=== PATIENT | female | born 1950 | race Caucasian/White ===

== ENCOUNTER 2017-03-03 08:32 | Outpatient (CLI) | payer MEDICARE ==
[2015-06-05 07:53] VITALS: BMI 22.6
[~2017-03-03 08:32] MED LIST: CRESTOR10 MG PO; CYMBALTA60 MG PO; DESERYL100 MG PO; ECOTRIN325 MG PO; LISINOPRIL5 MG PO; OXYBUTYNIN CHLOR5 MG PO; PLAVIX75 MG PO; PRILOSEC20 MG PO; SYNTHROID25 MCG PO
== END 2017-03-03 23:59 | disposition home or self-care (01) ==
LOC: D.MAMMO 08:32
DX: Z12.31 Encounter for screening mammogram for malignant neoplasm of breast (principal)

== ENCOUNTER 2018-01-11 15:15 | Inpatient (IN) | payer MEDICARE ==
[~2018-01-11] VITALS: Ht 165.1 cm; Wt 61.8 kg
--- NOTE | ~2018-01-11 | CN ---
PATIENT NAME:MARIA DEL CARMEN EASTON MEDICAL RECORD: [id number] : 48 LOCATION:D.[id number] ADMIT DATE: 01/11/18 ACCOUNT: [id number] CONSULTING PHYSICIAN: JUSTYN MUÑOZ MD REFERRING PHYSICIAN: XI MONZON MD DATE OF CONSULTATION: 01/12/2018 CONSULT REQUESTING PHYSICIAN: Dr. Tahira Monzon. REASON FOR CONSULTATION: Pneumonia, acute hypoxic respiratory failure. HISTORY OF PRESENT ILLNESS: Ms. Easton is a 67-year-old female. According to the patient, she was not feeling well for the last few days. Yesterday, she was seen in Dr. Mantilla's office for lower back evaluation scheduling her for surgery, but her pulse ox was 84% on room air, sent to the urgent care and chest x-ray showed she has left lower lobe pneumonia. The patient was admitted to the hospital. Today, she is feeling a lot better. She is breathing better. Denies any chest pain, no pleurisy, cough without much sputum production. REVIEW OF SYSTEMS: Mainly in the history of present illness. PAST MEDICAL HISTORY: 1. Chronic backache. 2. Hypertension. 3. Coronary artery disease. 4. Hypothyroidism. 5. Depressive disorder. 6. Cervical spine degeneration. PERSONAL AND SOCIAL HISTORY: The patient is a nonsmoker, nondrinker. FAMILY HISTORY: Noncontributory. SURGICAL HISTORY: 1. She has a thyroidectomy. 2. Total hysterectomy. 3. Cataract surgery. PHYSICAL EXAMINATION: GENERAL: The patient is lying comfortably in bed. She is not in acute distress. VITAL SIGNS: The blood pressure is 152/65, pulse is 102, respiration 17, temperature 99.1, SpO2 is 94% on 2 liters nasal cannula. HEENT: Conjunctivae are pink. Sclerae are not icteric. NECK: Supple, no JVD. CHEST: Excursion is minimal on both sides. There are crackles at the left base. HEART: Rhythm regular, normal sound, no murmur. ABDOMEN: Soft, bowel sounds present. No hepatosplenomegaly. RECTAL: Deferred. EXTREMITIES: No cyanosis, no clubbing, no pedal edema. SKIN: Warm, normal turgor. CENTRAL NERVOUS SYSTEM: The patient is awake and alert. There is no obvious cranial nerve abnormality. The gait was not tested. CONSULT REPORT [id number] [facility] DEL [facility] DATA: CBC: The WBC is 9.8, hemoglobin 12.6, hematocrit 37.4, the platelet count 234. Chemistry: Sodium 143, potassium is 3.4, BUN 7, creatinine 0.8. ABG on admission: The pH was 7.38, pCO2 was 46.6, the pO2 was 107, bicarbonate of 27.9. This was done on 2 liters nasal cannula. IMPRESSION: 1. Acute hypoxic respiratory failure with the SpO2 84% on room air. 2. Pneumonia, left lower lobe and lingula, most likely community-acquired pneumonia. 3. Hypokalemia. 4. Backache. 5. Hypertension. 6. Coronary artery disease. 7. Hypothyroidism. RECOMMENDATION: 1. We will continue Rocephin and Levaquin. 2. Supplemental oxygen. 3. Follow up labs and chest radiograph. Dr. Monzon, thank you for involving me in the care of Ms. Easton. TRANSINT:[id number] Voice Confirmation ID: [id number] DOCUMENT ID: [id number] JUSTYN MUÑOZ MD at 1410 CC: XI MONZON MD [id number] DICTATION DATE: 01/12/18 190 SURG NURSE: 01/13/18 0130 [facility] IN 01/13/18 [id number] [place] [address]
[2018-01-11 15:56] VITALS: BP 115/86; Ht 165.1 cm; Wt 61.8 kg
[2018-01-11 16:32] VITALS: BP 115/56
[2018-01-11 16:33] LABS: HEMATOCRIT 37.4 % (36.0-48.0); HEMOGLOBIN 12.6 g/dL (12-16); MCH 31.3 pg (26.0-34.0); MCHC 33.7 g/dL (31.0-37.0); MCV 92.8 fL (80.0-100.0); MEAN PLATELET VOLUME 10.7 fL (7.4-10.4); PLATELET COUNT 234 10x3/uL (130-400); RBC 4.03 10x6/uL (4.00-5.40); RDW 13.6 % (11.5-14.5); WBC 9.2 10x3/uL (4.8-10.8)
[2018-01-11 17:00] LABS: ALBUMIN 2.8 g/dL (3.4-5.0); ALKALINE PHOSPHATASE 64 U/L (46-116); ALT (SGPT) 8 U/L (10-68); BILIRUBIN - TOTAL 0.37 mg/dL (0.2-1.3); CALC OSMOLALITY 273 mosm/kg (275-300); CALCIUM 8.1 mg/dL (8.5-10.1); CARBON DIOXIDE 26.1 mmol/L (21.0-32.0); CHLORIDE - SERUM 103 mmol/L (98-107); CREATININE - SERUM 0.7 mg/dL (0.6-1.3); GLUCOSE 99 mg/dL (74-106); POTASSIUM - SERUM 3.9 mmol/L (3.5-5.1); PROTEIN - SERUM 6.3 g/dL (6.4-8.2); SODIUM 138 mmol/L (136-145); UREA NITROGEN 6 mg/dL (7-18); eGFR NON AFRICAN AMERICAN 88 mL/min (90-120)
[2018-01-11 17:10] LABS: MAGNESIUM - SERUM 1.9 mg/dL (1.8-2.4); PRO BNP 35 pg/mL (0-125)
[2018-01-11 17:28] LABS: LYMPHOCYTES 49 % (15-50); MONOCYTES 1 % (2-11); NEUTROPHILS 49 % (40-80); PLATELET ESTIMATE NORMAL
[2018-01-11 20:00] VITALS: BP 103/45
[2018-01-12] VITALS: BP 101/51
[2018-01-12 00:20] LABS: APPEARANCE CLEAR (CLEAR); BILIRUBIN NEGATIVE (NEGATIVE); COLOR YELLOW (YELLOW); GLUCOSE NEGATIVE (NEGATIVE); KETONE NEGATIVE (NEGATIVE); NITRITE NEGATIVE (NEGATIVE); PROTEIN NEGATIVE (NEGATIVE); UROBILINOGEN NORMAL (NORMAL)
[2018-01-12 04:00] VITALS: BP 130/59
[2018-01-12 05:31] LABS: BASOPHILS 0.2 % (0-2); EOSINOPHILS 1.1 % (0-7); HEMATOCRIT 32.9 % (36.0-48.0); HEMOGLOBIN 10.6 g/dL (12-16); IMMATURE GRANULOCYTES 0.2 % (0-5); LYMPHOCYTES 39.5 % (15-50); MCH 30.4 pg (26.0-34.0); MCHC 32.2 g/dL (31.0-37.0); MCV 94.3 fL (80.0-100.0); MONOCYTES 6.5 % (2-11); NEUTROPHILS 52.5 % (40-80); PLATELET COUNT 222 10x3/uL (130-400); RBC 3.49 10x6/uL (4.00-5.40); RDW 13.8 % (11.5-14.5); WBC 8.3 10x3/uL (4.8-10.8)
[2018-01-12 06:11] LABS: ALBUMIN 2.1 g/dL (3.4-5.0); ALKALINE PHOSPHATASE 53 U/L (46-116); BILIRUBIN - TOTAL 0.16 mg/dL (0.2-1.3); CALC OSMOLALITY 283 mosm/kg (275-300); CALCIUM 7.2 mg/dL (8.5-10.1); CARBON DIOXIDE 25.3 mmol/L (21.0-32.0); CHLORIDE - SERUM 109 mmol/L (98-107); CREATININE - SERUM 0.8 mg/dL (0.6-1.3); GLUCOSE 110 mg/dL (74-106); POTASSIUM - SERUM 3.4 mmol/L (3.5-5.1); PROTEIN - SERUM 5.5 g/dL (6.4-8.2); SODIUM 143 mmol/L (136-145); UREA NITROGEN 7 mg/dL (7-18); eGFR NON AFRICAN AMERICAN 75 mL/min (90-120)
[2018-01-12 06:16] LABS: ALT (SGPT) 5 U/L (10-68)
[2018-01-12 08:46] VITALS: BP 143/60
[2018-01-12 12:05] VITALS: BP 130/59
[2018-01-12 16:52] VITALS: BP 152/65
[2018-01-12 20:00] VITALS: BP 148/63
[2018-01-13 04:00] VITALS: BP 152/72
[2018-01-13 05:09] LABS: BASOPHILS 0.2 % (0-2); EOSINOPHILS 0.9 % (0-7); HEMATOCRIT 34.4 % (36.0-48.0); IMMATURE GRANULOCYTES 0.2 % (0-5); MCH 30.7 pg (26.0-34.0); MCV 96.1 fL (80.0-100.0); MEAN PLATELET VOLUME 10.4 fL (7.4-10.4); MONOCYTES 8.1 % (2-11); NEUTROPHILS 57.6 % (40-80); PLATELET COUNT 241 10x3/uL (130-400); RBC 3.58 10x6/uL (4.00-5.40); RDW 13.9 % (11.5-14.5)
[2018-01-13 05:26] LABS: ALBUMIN 2.2 g/dL (3.4-5.0); ALKALINE PHOSPHATASE 52 U/L (46-116); ALT (SGPT) 6 U/L (10-68); BILIRUBIN - TOTAL 0.29 mg/dL (0.2-1.3); CALC OSMOLALITY 284 mosm/kg (275-300); CALCIUM 7.4 mg/dL (8.5-10.1); CARBON DIOXIDE 26.7 mmol/L (21.0-32.0); CHLORIDE - SERUM 111 mmol/L (98-107); CREATININE - SERUM 0.7 mg/dL (0.6-1.3); GLUCOSE 95 mg/dL (74-106); PROTEIN - SERUM 5.7 g/dL (6.4-8.2); SODIUM 144 mmol/L (136-145); UREA NITROGEN 6 mg/dL (7-18); eGFR NON AFRICAN AMERICAN 88 mL/min (90-120)
[2018-01-13 08:09] VITALS: BP 156/64
[2018-01-13 11:48] VITALS: BP 147/57
[2018-01-13] MEDS ORDERED: VIBRAMYCIN 100100 MG PO (12:53)
[2018-01-13] MEDS ORDERED: PROAIR HFA8.5 GM INH (12:54)
== END 2018-01-13 14:31 | disposition home or self-care (01) | DRG 193 ==
LOC: D.MS 15:15
PROVIDERS: Family Medicine
DX: J18.9 Pneumonia, unspecified organism (principal); J96.01 Acute respiratory failure with hypoxia; I10 Essential (primary) hypertension; I25.10 Atherosclerotic heart disease of native coronary artery without angina pectoris; E03.9 Hypothyroidism, unspecified; E87.6 Hypokalemia; Z95.5 Presence of coronary angioplasty implant and graft; E78.5 Hyperlipidemia, unspecified; F17.200 Nicotine dependence, unspecified, uncomplicated

== ENCOUNTER → 2018-02-17 08:53 | Outpatient (CLI) | payer MEDICARE ==
[2018-01-11 15:56] VITALS: BMI 22.6
[~2018-02-17 08:53] MED LIST changes: +PROAIR HFA8.5 GM INH; +VIBRAMYCIN 100100 MG PO
== END | disposition home or self-care (01) ==
LOC: D.CT 08:53
DX: R91.1 Solitary pulmonary nodule (principal)

== ENCOUNTER 2018-05-26 08:00 | Outpatient (CLI) | payer MEDICARE ==
[2018-01-11 15:56] VITALS: BMI 22.6
== END 2018-05-26 09:00 | disposition home or self-care (01) ==
LOC: D.MAMMO 08:00
DX: Z12.31 Encounter for screening mammogram for malignant neoplasm of breast (principal)

== ENCOUNTER → 2018-07-08 07:37 | Outpatient (CLI) | payer MEDICARE ==
[2018-01-11 15:56] VITALS: BMI 22.6
[2018-07-13 17:12] LABS: FUNGAL - ASP FLAVUS Negative (Neg:<1:1); FUNGAL - ASP NIGER Negative (Neg:<1:1); FUNGAL - ASPER FUMIGATUS Negative (Neg:<1:1)
== END | disposition home or self-care (01) ==
LOC: D.RT 07:37
PROVIDERS: Internal Medicine Pulmonary Disease
DX: Z87.891 Personal history of nicotine dependence (principal)

== ENCOUNTER 2018-08-27 05:15 | Day surgery (SDC) | payer MEDICARE ==
[2018-08-26 11:18] LABS: HEMOGLOBIN 13.5 g/dL (12-16); MCH 30.2 pg (26.0-34.0); MCHC 33.8 g/dL (31.0-37.0); MCV 89.5 fL (80.0-100.0); MEAN PLATELET VOLUME 10.5 fL (7.4-10.4); RBC 4.47 10x6/uL (4.00-5.40); RDW 12.3 % (11.5-14.5); WBC 9.8 10x3/uL (4.8-10.8)
[2018-08-26 11:33] LABS: APTT 28.7 SECONDS (22.8-39.4); PROTIME 12.9 SECONDS (11.6-15.0)
[~2018-08-27] VITALS: Ht 165.1 cm; Wt 64.4 kg
--- NOTE | ~2018-08-27 | OP ---
PATIENT NAME: MARIA DEL CARMEN EASTON MEDICAL RECORD: [id number] :48 LOCATION:D.OPS ADMISSION DATE: SURGEON: CRISTIAN MANTILLA MD DATE OF OPERATION: 08/27/2018 PREOPERATIVE DIAGNOSIS: Lumbar spinal stenosis L4-L5, right. POSTOPERATIVE DIAGNOSES: Lumbar spinal stenosis L4-L5, right with foraminal stenosis. SURGEON: Cristian Mantilla MD PRIMARY CARE PHYSICIAN: Poornima Martinez MD PROCEDURES: Lumbar laminotomy, medial facetectomy and foraminotomy, L4-L5 on the right. DESCRIPTION AND TECHNIQUE: After induction of general endotracheal anesthesia, the patient was rolled prone on a Amari frame. Lumbar spine was prepped and draped in usual sterile fashion. Fluoroscopic x-ray and spinal needle localized the L4-L5 interspace on the right side. A stab incision was created with a #11 blade. Series of dilators were used to advance a METRx retractor at L4-L5 on the right. This was confirmed with fluoroscopic x-ray. A microscope and Midas Farzad drill were used to perform laminotomy, medial facetectomy and foraminotomy, L4-L5 on the right. Hypertrophied ligamentum flavum was removed with Cloward rongeurs. Following this, the L4 and L5 nerve roots were decompressed well. Meticulous hemostasis was maintained throughout the wound. The wound was irrigated with copious amounts of Ancef irrigant solution. The METRx retractor was removed. The fascia was closed with 2-0 Vicryl suture, the subdermal layer was closed with 3-0 Vicryl suture. The skin was closed with tay. A sterile dressing was applied to the wound. The patient was awakened in good condition, taken to recovery. All counts were reported as correct. Estimated blood loss was minimal. TRANSINT:[id number] Voice Confirmation ID: [id number] DOCUMENT ID: [id number] CRISTIAN MANTILLA MD at 0852 CC: [id number] DICTATION DATE: 09/28/18 09 MASKING MACHINE FEEDER: 09/28/18 1108 [facility] 08/27/18 [place] [address]
[2018-08-27 06:06] VITALS: BP 114/61; Ht 165.1 cm; Wt 64.4 kg
== END 2018-08-27 11:26 | disposition home or self-care (01) ==
LOC: D.OPS 05:15 → D.PAN 12:30 → D.OPS 12:30
PROVIDERS: Anesthesiology
DX: M48.061 Spinal stenosis, lumbar region without neurogenic claudication (principal); I10 Essential (primary) hypertension; K21.9 Gastro-esophageal reflux disease without esophagitis; F32.9 Major depressive disorder, single episode, unspecified; Z87.891 Personal history of nicotine dependence

== ENCOUNTER 2019-05-20 08:00 | Outpatient (CLI) | payer MEDICARE ==
[2018-08-27 06:06] VITALS: BMI 23.6
== END 2019-05-20 10:00 | disposition home or self-care (01) ==
LOC: D.MAMMO 08:00
PROVIDERS: ATTEND Family Medicine
DX: Z12.31 Encounter for screening mammogram for malignant neoplasm of breast (principal)